=== PATIENT | female | born 1970 | race Caucasian/White ===

== ENCOUNTER 2018-10-03 11:43 | Observation (INO) | payer OTHER ==
[2018-10-03] MEDS ORDERED: NS 1,000 ML IV ONE ×2 (12:03→13:22)
[2018-10-03 12:40] LABS: PLATELET COUNT 272 10^3/uL (150-400)
[2018-10-03] MEDS ORDERED: LORazepam 2 MG/ML INJ IVP ONE (12:44)
--- NOTE | 2018-10-03 13:25 | EDPHY ---
General Time Seen by Provider: 10/03/18 12:01 Narrative: CLINICAL IMPRESSION: Menorrhagia, anemia, uterine leiomyomas ASSESSMENT/PLAN: 47-year-old female with no significant medical history presents to the emergency department with 2 days of menorrhagia associated today with shortness of breath, weakness and lightheadedness. Patient arrives with stable vital signs. She was initially found to be anemic with an H&H of 8 and 28. Lower abdome uncomfortable but without focal mohamud findings. Formal pelvic ultrasound revealing multiple large uterine fibroids, only 2 of which could be measured as largest 5.4 cm. No mention of arterial flow through the right ovary although the right ovary did appear normal with no cyst. 1.5 cm left ovarian cyst. I discussed patient's case with Dr. Zuniga and Dr. Viramontes. Repeat H&H 2 hr after arrival dropped to 7 and 22. At this point was recommended patient received IV TXA and a blood transfusion. Risks and benefits for blood transfusion reviewed with the patient and she gave verbal consent and written consent. Case then discussed with Dr. De La Torre and shift change and given patient' s drop in hemoglobin and hematocrit, the need for TXA and packed red blood cells , it is recommended that she be admitted to the hospital. Patient is in agreement with this. Patient does report that she wishes to travel to [facility] for 5 months leaving tomorrow evening which was strongly discouraged. OBGYN to consult with the patient in the hospital. Discussed with Dr. Bullock who agrees to admit. Patient stable at time of admission. DIFFERENTIAL DX: Differential includes but not limited to menorrhagia, dysfunctional uterine bleeding, uterine fibroid, endometrial mass, ectopic ED PROCEDURES: See lab and/or imaging results below ED COURSE: Patient seen by myself. Pale, anemic with an H&H of 8 and 28. Vital signs stable, no tachycardia or hypotension. IV fluids initiated. Pelvic ultrasound ordered. Type and screen. 2:15 p.m.: Discussed ultrasound results with Dr. Lester. Patient has multiple large uterine fibroids only 2 of which that are measurable upwards of 5.4 cm. He also mentions no arterial flow visible through the right ovary but no mention of visible right ovarian cyst. A 1.5 cm left ovarian cyst is appreciated. I have a page to Dr. Viramontes with OBGYN. 3:00 p.m.: Discussed with Dr. Viramontes. She advised placing the patient on Lysteda 650 mg orally 1-2 tablets up to 3 times daily for a max of 5 days. She is happy to see the patient as an outpatient if patient feels comfortable with discharge. After my discussion with Dr. Viramontes, repeat H&H shows the patient has dropped to 7 and 22. I feel she now requires transfusion. Patient also informed me that she would like to leave the country tomorrow night for [facility] for [address] Zuniga. At this point we feel the patient may benefit from admission, blood transfusion, and TXA. I will review with OBGYN. After discussion with Dr. Viramontes again, it was advised patient received IV T x-ray. Dose was discussed with Dr. Zuniga. Patient received 1 g in the ED. I was told by ED attending that patient could receive 2 units of packed red blood cells in the ED and these were ordered and initiated here. Case signed out to Dr. De La Torre at 3:00 p.m. Who based on patient's H&H, TXA, and transfusion, she would like the patient admitted. I discussed this with the patient and she has agreed. At 5:00 p.m. I discussed with Dr. Bullock who agrees to admit. OBGYN to consult Patient continues to be hemodynamically stable. CHIEF COMPLAINT: Heavy vaginal bleeding HPI: 47-year-old female with no significant past medical history presents to the emergency department with heavy vaginal bleeding including passage of large clots since yesterday. Patient reports while sitting on the toilet she passed heavy amounts of clots and bleeding between the time frame of 2:00 p.m. And 7: 00 p.m.. She then stopped bleeding overnight and bled again this morning using the restroom at 9:00 a.m.. She is currently bleeding. She is not using a pad or tampon. She reports a history of irregular menses with passage of clots in the past but nothing this heavy. No reported history of uterine fibroids. She has not using hormone replacement therapy and still has regular menstrual cycles. She denies . She reports no ovarian cyst in the distant past. No baseline history of anemia. Patient states "I feel like shit, I feel like I am going to pass out, I feel very dizzy". She reports generalized lower abdominal pain. She ate a large helping of beef stew prior to arrival in the ED. PAST MEDICAL HISTORY: Anxiety See nurse/triage notes for additional history if applicable Pertinent Past Surgical History: Prior Family History: None reported Social History: Otherwise healthy REVIEW OF SYSTEMS: All other systems negative Constitutional: No fever, no chills, appetite change. Cardiovascular: No chest pain, no palpitations. Respiratory: No cough, no shortness of breath. Gastrointestinal: Positive for lower abdominal pain, no vomiting, diarrhea. Genitourinary: No hematuria, dysuria, flank pain, positive for pelvic pain positive for vaginal bleeding Musculoskeletal: No back pain, joint swelling, joint pain, myalgias. Skin: No rashes, positive for color change Neurological: No headache, positive for dizziness, positive for weakness. PHYSICAL EXAM: General Appearance: Alert, oriented, appropriate, cooperative,well hydrated, non-toxic appearing, VSS, very anxious, cursing at me, appears pale, no hypoxia. HEENT: Oropharynx clear is no erythema or exudates, no tonsillar hypertrophy or asymmetry. Dentition without abnormality.] Eyes: PERRLA, no acute vision change, nystagmus, swelling, discharge, pain or photosensitivity. Conjunctiva pale Neck: Supple, nontender, no lymphadenopathy, no midline pain, FROM, no meningismus. Respiratory: There are no retractions, lungs are clear to auscultation. Cardiac: Regular rate and rhythm, no murmurs or gallops. Gastrointestinal: Abdomen is soft, generalized lower abdominal tenderness, bowel sounds normal, no masses/hernia, no rigidity, guarding or focal peritoneal findings. Neurological: [ Alert and oriented x 3, CN 2-12 grossly intact MEDICAL DECISION MAKING: Patient was seen independently. Secondary supervising physician at time of evaluation was Dr. Zuniga. Diagnosis: Menorrhagia, Anemia, Uterine Fibroids . New, requires workup Summary: See Assessment and Plan for summary of ED visit Clinical lab tests: ordered / reviewed. Independent visualization of images, tracing, or specimens: Yes. Decision to obtain medical records or history from someone other than the patient: No Review / Summarize previous medical records: None available Discussed patient with another provider: Dr Viramontes Patient Progress: Stable for admission. - Diagnostics Imaging Results: Imaging Impressions Pelvic/Renal Ultrasound 10/03/18 12:44 Impression: 1. Large uterine fibroids, likely with submucosal extension. For improved characterization, an MRI pelvis with contrast may be considered. 2. Inability to elicit arterial flow in the right ovary. This may be related to technique as the ovary does not appear abnormal. Recommend correlating with any symptoms of torsion. 3. Hypoechoic 1.5 cm cyst in the left ovary, incompletely seen but may represent a corpus luteum, hemorrhagic cyst, or endometrioma. Findings and recommendations discussed with Mark Castellon at 1419 hour, 10/03/2018. - History Smoking Status: Former smoker - Objective Vital Signs: Initial Vital Signs Temperature (C) 36.6 C 10/03/18 12:01 Heart Rate 77 10/03/18 12:01 Respiratory Rate 16 10/03/18 12:01 Blood Pressure 116/77 10/03/18 12:01 O2 Sat (%) 100 10/03/18 12:01 O2 Delivery Mode Room Air Allergies/Adverse Reactions: No Known Allergies Allergy (Unverified 10/03/18 12:03) Home Medications: Medication Instructions Recorded Herbals/Supplements -Info Only 10/03/18 Progesterone 10/03/18 Valium 10 MG (*) 10/03/18 Laboratory Results: Laboratory Results 10/03/18 12:15 10/03/18 12:15 10/03/18 10/03/18 10/03/18 14:46 13:47 13:37 WBC RBC Hgb POC Hgb 7.5 gm/dL L gm/dL (12.6-16.3) Hct POC Hct 22 % L % (38-47) MCV MCH MCHC RDW Plt Count MPV Neut % (Auto) Lymph % (Auto) [place] % (Auto) Eos % (Auto) Baso % (Auto) Nucleat RBC Rel Count Absolute Neuts (auto) Absolute Lymphs (auto) Absolute Monos (auto) Absolute Eos (auto) Absolute Basos (auto) Absolute Nucleated RBC Immature Gran % Immature Gran # PT INR APTT POC Sodium 141 mEq/L mEq/L (135-145) Sodium POC Potassium 3.8 mEq/L mEq/L (3.3-5.0) Potassium POC Chloride 110 mEq/L mEq/L (97-110) Chloride Carbon Dioxide POC Total CO2 21 mEq/L L mEq/L (22-31) Anion Gap POC BUN 8 mg/dL mg/dL (7-23) BUN Creatinine POC Creatinine 0.9 mg/dL mg/dL (0.6-1.0) Estimated GFR Glucose POC Glucose 93 mg/dL mg/dL (70-100) Calcium Urine Test NEGATIVE Patient ABO/Rh A POSITIVE Antibody Screen NEGATIVE Crossmatch IS Only See Detail 10/03/18 10/03/18 10/03/18 12:15 12:15 12:15 WBC 8.25 10^3/uL 10^3/uL (3.80-9.50) RBC 3.77 10^6/uL L 10^6/uL (4.18-5.33) Hgb 8.4 g/dL L g/dL (12.6-16.3) POC Hgb Hct 28.2 % L % (38.0-47.0) POC Hct MCV 74.8 fL L fL (81.5-99.8) MCH 22.3 pg L pg (27.9-34.1) MCHC 29.8 g/dL L g/dL (32.4-36.7) RDW 17.7 % H % (11.5-15.2) Plt Count 272 10^3/uL 10^3/uL (150-400) MPV 10.0 fL fL (8.7-11.7) Neut % (Auto) 73.9 % % (39.3-74.2) Lymph % (Auto) 17.1 % % (15.0-45.0) Vinton % (Auto) 6.9 % % (4.5-13.0) Eos % (Auto) 1.2 % % (0.6-7.6) Baso % (Auto) 0.7 % % (0.3-1.7) Nucleat RBC Rel Count 0.0 % % (0.0-0.2) Absolute Neuts (auto) 6.09 10^3/uL 10^3/uL (1.70-6.50) Absolute Lymphs (auto) 1.41 10^3/uL 10^3/uL (1.00-3.00) Absolute Monos (auto) 0.57 10^3/uL 10^3/uL (0.30-0.80) Absolute Eos (auto) 0.10 10^3/uL 10^3/uL (0.03-0.40) Absolute Basos (auto) 0.06 10^3/uL 10^3/uL (0.02-0.10) Absolute Nucleated RBC 0.00 10^3/uL 10^3/uL (0-0.01) Immature Gran % 0.2 % % (0.0-1.1) Immature Gran # 0.02 10^3/uL 10^3/uL (0.00-0.10) PT 13.5 SEC SEC (12.0-15.0) INR 1.07 (0.83-1.16) APTT 26.5 SEC SEC (23.0-38.0) POC Sodium Sodium 137 mEq/L mEq/L (135-145) POC Potassium Potassium 4.2 mEq/L mEq/L (3.5-5.2) POC Chloride Chloride 105 mEq/L mEq/L (97-110) Carbon Dioxide 23 mEq/l mEq/l (22-31) POC Total CO2 Anion Gap 9 mEq/L mEq/L (6-14) POC BUN BUN 11 mg/dL mg/dL (7-23) Creatinine 0.7 mg/dL mg/dL (0.6-1.0) POC Creatinine Estimated GFR > 60 Glucose 99 mg/dL mg/dL (70-100) POC Glucose Calcium 9.0 mg/dL mg/dL (8.5-10.4) Urine Test Patient ABO/Rh Antibody Screen Crossmatch IS Only Medications Given: Discontinued Medications Sodium Chloride (Ns) 1,000 mls @ 0 mls/hr IV EDNOW ONE; Wide Open PRN Reason: Protocol Stop: 10/03/18 12:04 Last Admin: 10/03/18 12:18 Dose: 1,000 mls Sodium Chloride (Ns) 1,000 mls @ 0 mls/hr IV EDNOW ONE; Wide Open PRN Reason: Protocol Stop: 10/03/18 13:23 Last Admin: 10/03/18 13:42 Dose: 1,000 mls Tranexamic Acid 1,000 mg/ (Sodium Chloride) 110 mls @ 660 mls/hr IV ONCE ONE Stop: 10/03/18 15:29 Last Admin: 10/03/18 15:59 Dose: 110 mls Lorazepam (Ativan Injection) 0.5 mg IVP EDNOW ONE Stop: 10/03/18 12:45 Last Admin: 10/03/18 12:48 Dose: 0.5 mg Point of Care Test Results: Chemistry 10/03/18 14:46 POC Sodium 141 mEq/L mEq/L (135-145) POC Potassium 3.8 mEq/L mEq/L (3.3-5.0) POC Chloride 110 mEq/L mEq/L (97-110) POC Total CO2 21 mEq/L L mEq/L (22-31) POC BUN 8 mg/dL mg/dL (7-23) POC Creatinine 0.9 mg/dL mg/dL (0.6-1.0) POC Glucose 93 mg/dL mg/dL (70-100) ISTAT H&H 10/03/18 14:46 POC Hgb 7.5 gm/dL L gm/dL (12.6-16.3) POC Hct 22 % L % (38-47) Departure - Departure Condition: Good Referrals: Argelia Barnes MD [Primary Care Provider] - As per Instructions
[2018-10-03 13:33] LABS: INR 1.07 (0.83-1.16); PROTIME(PATIENT) 13.5 SEC (12.0-15.0)
[2018-10-03] MEDS ORDERED: TRANEXAMIC ACID 1,000 MG in NS 100 ML IV ONE (15:20)
--- NOTE | 2018-10-03 17:23 | PDGENHP ---
History and Physical History and Physical: CC: Vaginal bleeding HISTORY: This patient comes into the ER bleeding vaginally with cramps for 2 days feeling lightheaded and short of breath and weak. She has a history of heavy periods, particularly in the past year. We have several hemoglobin tests in our system going back to 2008 the only time she has ever had anemia was October 2017 with a hemoglobin 12.4 normal MCV. She is prescribed progesterone but is not taking any known platelet inhibitors or anticoagulants. She has not had bleeding from any other part of her body of concern. There is no previous history of bruising or petechiae. There is no family history of bleeding disorder. ROS: A comprehensive 10 system review revealed no other significant findings PAST MEDICAL HISTORY: Chlamydia Depression, panic disorder Tobacco use Eating disorder (anorexia as a teen) Ovarian cyst Patellar fracture FAMILY MEDICAL HISTORY: Heart disease Hyperlipidemia Alcoholism Colon cancer Osteoporosis Thyroid Lupus Hypertension Pancreatic cancer SOCIAL HISTORY: MEDICATIONS: The patients list has been reconciled by our clinical pharmacist in the EMR. I have reviewed the list and ordered appropriate medicines. PHYSICAL EXAMINATION: Vital Signs: all stable without fever [employer]:sinus Examination: General: alert, oriented, good mentation, relaxed Skin: warm, dry, good color, no rash HEENT: normal Neck: no mass or jvd Resps: relaxed Lungs: clear breath sounds Heart: regular, no murmur Abdomen: soft, nondistended, nontender, +BS, no mass Upper Extremities: normal Lower Extremities: no edema, warm No Bleeding or bruising Neurologic: normal speech/language, normal security strategist, no focal weakness IV site: looks normal LABORATORY DATA: Initial hemoglobin is 8.4 and on for repeat check here it was 7.5, MCV is low at 74 with most recent numbers hemoglobin 12 MCV 84 in October 2017 Normal platelets and white count RADIOLOGY STUDIES: Pelvic US shows fibroids, and a poorly visualized ovarian cyst ASSESSMENT: * Acute symptomatic severe post hemorrhagic anemia * Acute vaginal bleeding * Uterine hemorrhoid seen on ultrasound The low MCV indicates that she has probably been developing anemia with bleeding for longer than just the past 2 days. MCV notably decreased since 1 year ago. However clearly with significant bleeding now and developing significant symptoms. It is hard to determine how quickly her hemoglobin has dropped with this particular episode but clearly she seems to be developing ongoing iron deficiency anemia from menometrorrhagia over time. At this time transfusion is indicated with ongoing bleeding and hemoglobin dropping from 8-7 here in the ER. She is significantly symptomatic. PLANS: * She has received 2 units of red blood cells and some tranexamic acid in the ER * Will follow up with a repeat hemoglobin and follow that and vital signs closely * I will review with Dr. Viramontes who is aware of the patient's ER visit and admission * Iron supplementation - will give a dose of IV iron in the morning I have reviewed the patient's case in detail with Mark Castellon of the ER I have reviewed the patient's past medical records as part of this assessment, including previous ER visits and outpatient clinic records
[2018-10-03] MEDS ORDERED: DIAZEPAM 5 MG TAB PO PRN ×2 (18:40→21:14)
[2018-10-03] MEDS ORDERED: PROGESTERONE PO SCH (18:45)
[2018-10-04] MEDS ORDERED: ACETAMINOPHEN 325 MG TAB PO PRN (02:26)
[2018-10-04 08:27] VITALS: BP 101/63
--- NOTE | 2018-10-04 08:52 | GCON ---
[f rep st] CONSULTATION DATE OF CONSULTATION: 10/03/2018 HISTORY: Upon consultation, the patient is a 47-year-old G2, P1, L2 white female who presented to the emergency room this afternoon after several hours of menorrhagia today in addition to hours of very heavy bleeding yesterday. The patient was becoming more lightheaded and having waves of stronger dysmenorrhea. The patient had an ultrasound in the emergency room revealing multiple moderate-sized fibroids. The patient's H and H dropped from 8/28 down to 7/22 over the course of several hours. The patient is hemodynamically very stable. She received 1 dose of TXA IV approximately 1520. The patient was admitted for observation with a plan of 2 units of blood transfusion and to reassess her bleeding through the night. I was consulted to discuss the patient 's current status with the menorrhagia and uterine fibroids. The patient reports over a year of very heavy menstrual cycles. The patient states her menses are monthly and are lasting up to 8 days with 4-5 days of extremely heavy flow. The patient has been under a significant amount of stress currently in a custody samuel with her ex-. She reports the amount of flow during the last couple days has been more insane than typical. The patient has been trying to do hormone management through [facility]. She most recently has been on cyclic progesterone compounded cream. She was using the estradiol cream up to June 2018, but stopped that due to very high blood levels of estrogen. The patient has not been told her uterus was enlarged and has not had an ultrasound since her . PAST MEDICAL HISTORY: Depression and panic attacks for which the patient very infrequently uses Valium. History of ovarian cysts approximately 25 years ago. Above-mentioned menorrhagia. PAST SURGICAL HISTORY: Various skin cancers removed, tonsils and adenoids in her teens, patellar tendon repair, section. PAST OBSTETRIC HISTORY: TAB at the age of 18. The patient had a twin gestation 13 yrs ago. She delivered her 1st named Max vaginally. He was estimated 5-1/2 pounds. Following this, the patient required delivery for the 2nd twin, a viable female. ALLERGIES: The patient has no known drug allergies. CURRENT MEDICATIONS: Compounded progesterone vaginal cream which she applies days 14-26 of her cycle. The patient reports the last menstrual cycles have been more unpredictable bleeding. SOCIAL HISTORY: The patient has recently gone through a bitter divorce and currently high stress due to custody samuel. The patient has finally been awarded the ability to leave the country and had a planned trip for several months with her 2 kids to [facility]. With the current heavy bleeding and need for hospitalization, the patient has changed her flight from tomorrow to Tuesday. PHYSICAL EXAM: GENERAL: Patient is a well-developed, well-nourished white female in no physical distress, other than occasional mild cramping sensation. VITAL SIGNS: The patient is afebrile. Blood pressure is 100s over 70s, heart rate in the 80s. ABDOMEN: Exam is limited to the abdomen. The uterus feels palpably slightly enlarged, 12-14 week size and irregular. The abdomen is soft and there is slight tenderness upon palpation of the uterus. ULTRASOUND: The uterus is 10.5 x 9 x 7.6 cm. Multiple fibroids, but the 2 most dominant are 5.4 cm and 3.8 cm. Both appear to be abutting into the submucosal area. Bilaterally, the ovaries appear normal. LABORATORY: Current labs reveal above-mentioned drop of H and H down to 7/ 22. Additionally, basic metabolic panel appears normal and the PT 13.5 with INR of 1.07. ASSESSMENT: 1. Menorrhagia with chronic history of heavy periods with current menstrual cycle significantly stronger, most likely due to social stressors. Has uterine fibroids, the two larger fibroids might abut submucosal. 2. Severe anemia noted. The patient has received 1 and beginning her 2nd unit of packed red blood cells. Patient reports bleeding has reduced since the TXA IV in the emergency room. Long discussion had with the patient and 2 close friends about the menorrhagia. Likely could go for several years before menoopause as the patient's mom had her menopause in mid 50s. We discussed managing with Lysteda up to 6 pills a day with max of 5 days a month. We also discussed uterine artery embolization for the uterine fibroids. If patient wanted definitive management, hysterectomy most likely could be accomplished by laparoscopy. The patient is planning on proceeding with a trip to [facility] to get away from the current stressors in this area. I advised the patient that this does bring some strong caution due to the remote nature and whether she could get medical support if needed. Pt still feels she'll go. Rec f/u with Dr Barnes upon return or [facility] to recheck u/s in 3-4 months and reassess menorrhagia and plan. PLAN: The patient is given a prescription for Lysteda 650 mg to take 1-2 up to 3 times a day, dispense 30 with 6 refills. Upon return here, I recommend a followup ultrasound to reassess the fibroid size. Certainly, patient to reach out if her bleeding does not seem more manageable. I recommend iron. All patient's questions were answered. TIME SPENT: 45 minutes was spent [id number] with the patient discussing her issues and ultrasound and lab findings. /[id number]/MODL MTDD
[2018-10-04] MEDS ORDERED: SODIUM FERRIC GLUCONAT/SUCROSE 125 MG in NS 100 ML IV SCH (09:00)
--- NOTE | 2018-10-04 10:37 | HOSPPROG ---
Hospitalist Progress Note Assessment/Plan: This patient comes into the ER bleeding vaginally with cramps for 2 days feeling lightheaded and short of breath and weak. She has a history of heavy periods this past year. First encounter, chart reviewed. *menorrhagia -hx of heavy periods -stress has likely made this worse *severe anemia -given 2 units of blood, s/p TXA in the ER -given a script of Lysteda -could consider a uterine artery embolization for the uterine fibroids or for definitive management; could have a hysterectomy *uterine fibroids -should get a f/u ultrasound *plan: dc home Subjective: Lia is feeling much better today, had one clotty discharge this morning. Objective: Vital Signs Temp Pulse Resp BP Pulse Ox 36.6 C 68 18 101/63 96 10/04/18 08:00 10/04/18 08:00 10/04/18 08:00 10/04/18 08:00 10/04/18 08:00 Laboratory Results 10/04/18 04:51 10/03/18 10/04/18 10/05/18 05:59 05:59 05:59 Intake Total 2480 Balance 2480 PT 13.5 SEC (12.0-15.0) 10/03/18 12:15 INR 1.07 (0.83-1.16) 10/03/18 12:15 - Physical Exam Constitutional: no apparent distress, appears nourished, not in pain Eyes: PERRL Ears, Nose, Mouth, Throat: hearing normal Respiratory: no respiratory distress Skin: warm, normal color Musculoskeletal: full muscle strength Neurologic: AAOx3 Psychiatric: interacting appropriately ICD10 Worksheet Patient Problems: Problems Problem Status Onset Menorrhagia Acute Uterine fibroid Acute
[2018-10-04] MEDS ORDERED: TRANEXAMIC ACID 650 MG TAB PO ONE (10:45)
--- NOTE | 2018-10-04 12:33 | GDS ---
[f rep st] DISCHARGE SUMMARY DISCHARGE DIAGNOSES: 1. Menorrhagia. 2. Severe anemia. 3. Uterine fibroids. CONSULTATION: Dr. Viramontes. Briefly, the patient came to the ER for having significant bleeding vaginally and cramps for the last 2 days. She started feeling lightheaded and short of breath. She was given 2 units of blood as wel l as IV iron and TXA. She is feeling markedly better. She will be discharged home with further foll ow up with gynecology. HOSPITAL COURSE: 1. Menorrhagia. She has a history of heavy periods. Stress has made this worse. She is planning o n going to the [facility] to relax. 2. Severe anemia. She was given 2 units of blood. She was given TXA in the ER. She was also given a script for Lysteda. Recommendation is that she could consider a uterine artery embolization for t he uterine fibroids or for definitive management could have a hysterectomy. 3. Uterine fibroids. To get a followup ultrasound when she returns here in October. DISCHARGE CONDITION: Stable. Blood pressure is 101/63, respiratory rate is 18, pulse is 68, tempera ture is 36.6 Celsius, O2 saturation on room air 96%. MEDICATIONS AT DISCHARGE: Please see the EMR. DISCHARGE INSTRUCTIONS: 1. Recommending no NSAIDs in the setting of bleeding, to take Tylenol only. 2. To buy [id number] iron and take vitamin C to help with her anemia. 3. To get a followup ultrasound when she returns for re-evaluation of her fibroid size. 4. Stay well hydrated. 5. She can take the Lysteda up to 3 times a day. /[id number]/MODL
== END 2018-10-04 11:30 | disposition home or self-care (01) ==
LOC: F3E 18:14
PROVIDERS: ADMIT Internal Medicine; ATTEND Internal Medicine
PROC: 30233N1 Transfusion of Nonautologous Red Blood Cells into Peripheral Vein, Percutaneous Approach (ICD-10-PCS; principal; 2018-10-03)
DX: N92.0 Excessive and frequent menstruation with regular cycle (principal); D64.9 Anemia, unspecified; D25.0 Submucous leiomyoma of uterus; D25.1 Intramural leiomyoma of uterus; N83.202 Unspecified ovarian cyst, left side; F32.9 Major depressive disorder, single episode, unspecified
CPT/HCPCS: 36430; 76856; 96361; 96365; 96375; 99285; G0378; P9016; 82435-PO; 82565-PO; 82947-PO; 84132-PO; 84295-PO; 84520-PO; 85014-ER; J2060; J2916

== ENCOUNTER → 2018-11-14 | Outpatient (CLI) | payer OTHER | LOC: FIMAGING 09:19 | PROVIDERS: ATTEND Obstetrics & Gynecology Gynecology | DX: D25.0 Submucous leiomyoma of uterus (principal) ==